=== PATIENT | female | born 1940 | race Caucasian/White ===

== ENCOUNTER → 2016-08-02 | Outpatient (CLI) | payer OTHER | LOC: FIMAGING 10:58 | DX: Z12.31 Encounter for screening mammogram for malignant neoplasm of breast (principal); Z80.3 Family history of malignant neoplasm of breast | CPT/HCPCS: G0202 ==

== ENCOUNTER 2016-08-23 05:57 | Inpatient (IN) | payer OTHER ==
[2016-08-23] MEDS ORDERED: ROPI/epiNEPH/KETOROLAC JOINT COCKTAIL IU ONE (06:00)
[2016-08-23] MEDS ORDERED: CHLORHEXIDINE GLUC HIBICLENS 118 ML BTL TP ONE (06:00)
[2016-08-23] MEDS ORDERED: DEXAMETHASONE 4 MG/ML VIAL IVP ONE (06:00)
[2016-08-23] MEDS ORDERED: CEFAZOLIN 2 GM/DEXTR 100 ML IV ONE (06:00)
[2016-08-23] MEDS ORDERED: ACETAMINOPHEN 325 MG TAB PO ONE (06:00)
[2016-08-23] MEDS ORDERED: TRANEXAMIC ACID 3,000 MG in NS 50 ML IRR ONE (06:00)
[2016-08-23] MEDS ORDERED: FAMOTIDINE 20 MG TAB PO ONE (06:00)
[2016-08-23] MEDS ORDERED: LIDOCAINE 1% 2 ML INJ ONE (06:45)
[2016-08-23] MEDS ORDERED: TRANEXAMIC ACID 3,000 MG/50 ML BAG IRR ONE (06:48)
[2016-08-23] MEDS ORDERED: LR 1,000 ML IV ONE (07:24)
[2016-08-23] MEDS ORDERED: LIDOCAINE 1% 5 ML SDV ID PRN (07:24)
[2016-08-23] MEDS ORDERED: fentaNYL 100 MCG/2 ML INJ ONE (07:25)
[2016-08-23] MEDS ORDERED: MIDAZOLAM 2 MG/2 ML VIAL ONE ×2 (07:26→08:08)
[2016-08-23] MEDS ORDERED: PROPOFOL/EMULSION 500 MG/50 ML BOTTLE IV ONE (07:27)
[2016-08-23] MEDS ORDERED: ONDANSETRON 4 MG/2 ML VIAL ONE (07:36)
[2016-08-23] MEDS ORDERED: BISACODYL 10 MG SUPP PR PRN (08:43)
[2016-08-23] MEDS ORDERED: PHARMACY PAIN CONSULT 1 EA MISC PRN (08:43)
[2016-08-23] MEDS ORDERED: MAGNESIUM HYDROXIDE 30 ML UDCUP PO PRN (08:43)
[2016-08-23] MEDS ORDERED: PROMETHAZINE HCL 25 MG SUPPR PR PRN (08:43)
[2016-08-23] MEDS ORDERED: METOCLOPRAMIDE 10 MG/2 ML VIAL IVP PRN (08:43)
[2016-08-23] MEDS ORDERED: ONDANSETRON 4 MG/2 ML VIAL IVP PRN (08:43)
[2016-08-23] MEDS ORDERED: POLYETHYLENE GLYCOL 3350 17 GM PKT PO PRN (08:43)
[2016-08-23] MEDS ORDERED: LACTULOSE 20 GM/30 ML UDCUP PO PRN (08:43)
[2016-08-23] MEDS ORDERED: TEMAZEPAM 15 MG CAP PO PRN (08:43)
[2016-08-23] MEDS ORDERED: diphenhydrAMINE 25 MG CAP PO PRN (08:43)
[2016-08-23] MEDS ORDERED: CYCLOBENZAPRINE 10 MG TAB PO PRN (08:43)
[2016-08-23] MEDS ORDERED: ONDANSETRON DISINTEGRATING 4 MG TAB PO PRN (08:43)
[2016-08-23] MEDS ORDERED: oxyCODONE IR 5 MG TAB PO PRN (08:43)
[2016-08-23] MEDS ORDERED: DIPHENOXYLATE/ATROPINE LOMOTIL 1 TAB PO PRN (08:43)
[2016-08-23] MEDS ORDERED: LR 1,000 ML IV SCH (09:00)
[2016-08-23] MEDS ORDERED: PHENYLEPHRINE HCL 100 MCG/ML SYR ONE (09:10)
--- NOTE | 2016-08-23 09:34 | POSTOPPROG ---
Post Op Note Date of Operation: 08/23/16 Surgeon: Jimbo Villagomez [facility] Therapist: santy villagomez Anesthesiologist: dr. seymour Anesthesia: Spinal Pre-op Diagnosis: L hip OA Post-op Diagnosis: same Indication: left hip pain due to OA that failed conservative measures Procedure: L AMADOU ant approach Findings: severe hip OA Inf/Abcess present in the surg proc area at time of surgery?: No EBL: 100-500
[2016-08-23] MEDS: ACETAMINOPHEN 325 MG TAB PO SCH ×2 (12:01→18:17)
[2016-08-23] MEDS: SENNOSIDES/DOCUSATE SODIUM TAB PO SCH ×2 (12:23→20:59)
[2016-08-23] MEDS: ceFAZolin 2 GM/DEXTROSE 100 ML IV SCH ×2 (14:03→20:57)
--- NOTE | 2016-08-23 20:47 | GOP ---
[f rep st] OPERATIVE REPORT DATE OF OPERATION: 08/23/2016 SURGEON: Lynn Caballero MD LEGAL CASHIER: STEPHAN Bingham PREOPERATIVE DIAGNOSIS: Left hip osteoarthritis. POSTOPERATIVE DIAGNOSIS: Left hip osteoarthritis. PROCEDURE PERFORMED: Left total hip arthroplasty. FINDINGS: ESTIMATED BLOOD LOSS: 200 cc. INDICATIONS: The patient has progressively worsening arthritis of the hip which has failed medical management. The patient understands the treatment options including continued non-operative care and has selected surgical intervention. The patient has decided to undergo total hip arthroplasty via the direct anterior approach, understanding the risks of the procedure including , but not limited to, neurovascular injury, infection, persistent pain, component wear and loosening, deep venous thrombosis, pulmonary embolism, limb length inequality, hip instability (including dislocation), and intra-operative fractures. DESCRIPTION OF PROCEDURE: After proper identification of the patient including verification and marking the surgical site, the patient was brought to the operating room and placed in the supine position. All bony prominences were well padded. Anesthesia was induced without complication and intravenous prophylactic antibiotics were administered prior to skin incision. The operative leg was placed in the Trumpf Arch table extension and the well leg in a Yellofin leg leal. The patient was prepped and draped in the usual sterile fashion. The C-arm was draped for intra-operative fluoroscopy to check acetabular position, femoral component position including leg length and femoral offset. Attention was then drawn to surgical exposure of the hip. An incision was made with a #10 Bard Valentín blade starting 3 cm lateral and 3 cm distal to the anterior superior iliac spine measuring 8-10 cm and coursing distally toward the greater trochanter. The skin and subcutaneous tissues were divided sharply down to the fascia shantelle. The fascia shantelle was incised in line with the skin incision exposing the underlying tensor fascia shantelle muscle. The muscle was bluntly elevated from the fascia and the first extracapsular Cobra retractor was placed laterally at the junction of the superior femoral neck and greater trochanter. The lateral femoral circumflex vessels were identified, cauterized , and divided with the Aquamantys bipolar cautery. The deep investing fascia of the TFL was divided to allow proper mobilization of the muscle preventing damage during the retraction. The reflected head of the rectus femoris muscle was elevated off the anterior hip capsule and a medial Cobra retractor was placed just proximal to the lesser trochanter. The anterior capsulotomy was made sharply from the superolateral acetabulum to the saddle junction of the superior femoral neck and greater trochanter, then coursing inferomedial towards the lesser trochanter. The retractors were then placed in the intracapsular position for femoral neck osteotomy. Corresponding to pre-operative templating, the osteotomy was made with the oscillating saw carefully protecting the greater trochanter and soft tissues. The femoral head was removed from the acetabulum with a corkscrew and confirmed to be severely arthritic with exposed bone, deformity and osteophytes. Similar findings were confirmed in the acetabulum. The Arch table extension was then placed in 40 degrees external rotation. Attention was then drawn to the acetabular preparation. After placement of the anterior and posterior Cobra retractors outside the labrum and intracapsular, the circumferential labrum was removed sharply. The foveal contents were then removed and hemostasis obtained with cautery. The first reamer selected was sized using the removed femoral head. Reaming began with medialization and then commenced in 2 mm increments at 45 degrees of abduction and 15 degrees of anteversion using fluoroscopic navigation. Reaming ceased 1 mm less than the definitive acetabular component and corresponded to the pre-operative templating. The final acetabular component was inserted using fluoroscopy to achieve proper orientation yielding excellent purchase and stability in the acetabulum. The final acetabular liner was then placed and its seating confirmed. Attention was then turned to the femur. The Arch table extension was placed in extension and adduction, delivering the osteotomized femoral neck into the wound. A 2-pronged femoral elevator was placed at the calcar and another at the tip of the greater trochanter. The posterolateral capsule was released with cautery allowing mobilization of the femur lateral and anterior for preparation. The external rotators were visualized and preserved. A curette and rongeur were used to open the starting point for broaching. Serial broaching started with the #0 broach and ended with the broach that exhibited excellent fit in the proximal femur. A change in pitch during mallet strikes was accompanied by the inability to advance the broach any further. The trial reduction was performed and fluoroscopic navigation was utilized to check limb length. Adjustments were made to equalize limb length accordingly. After the final trials were accepted they were removed and the wound was copiously lavaged. The femoral component was seated to the same depth as the final broach and the femoral head was impacted onto the clean trunnion. The hip was then reduced for the final time and once more fluoroscopy was used to check that limb length equality was achieved. The wound was irrigated and closed in layers, the fascia shantelle with 2-0 Quill, the subcutaneous tissue with 2-0 Quill, and the skin with Dermabond. Sterile dressings were applied. Final sharps and sponge counts were accurate. The patient was then transferred to a hospital bed and brought to the recovery room in stable condition. IMPLANTS: Accolade II, size 3, at 127. Acetabular component is a 52 mm Tritanium. Liner is a Trident X3 32 mm. Head is a Biolex Delta 32 mm +4. /[id number]/MODL MTDD
[2016-08-23] MEDS: ASPIRIN 325 MG TAB PO SCH (20:57)
[2016-08-23] MEDS: FAMOTIDINE 20 MG TAB PO SCH (20:59)
[2016-08-24] MEDS: ACETAMINOPHEN 325 MG TAB PO SCH ×3 (00:07→12:05)
[2016-08-24 05:39] LABS: HEMOGLOBIN 12.8 g/dL (12.6-16.3)
[2016-08-24 05:51] LABS: CALCIUM 8.9 mg/dL (8.5-10.4); CARBON DIOXIDE 22 mEq/l (22-31); CHLORIDE 110 mEq/L (97-110); CREATININE 1.1 mg/dL (0.6-1.0); GLOMERULAR FILTRATION RATE 48; GLUCOSE 87 mg/dL (70-100); SODIUM 140 mEq/L (134-144)
[2016-08-24 05:55] LABS: ANION GAP 8 mEq/L (8-16); POTASSIUM 3.7 mEq/L (3.5-5.2)
[2016-08-24] MEDS: ASPIRIN 325 MG TAB PO SCH (08:49)
[2016-08-24] MEDS: FAMOTIDINE 20 MG TAB PO SCH (08:49)
[2016-08-24] MEDS: SENNOSIDES/DOCUSATE SODIUM TAB PO SCH (08:50)
[2016-08-24] MEDS ORDERED: GEMFIBROZIL 600 MG TAB PO SCH (09:00)
--- NOTE | 2016-08-24 11:27 | SOAPPROG ---
SOAP Progress Note Assessment/Plan: Assessment: Patient is doing well POD 1 s/p L AMADOU Pain management: pain is well controlled on oral pain meds. VTE ppx: recommend aspirin daily for 3 weeks, cont KINDRA and SCDs Anemia: level is expected initially postop. Asymptomatic. Continue to monitor D/c planning: d/c to home today pending release from PT postop urinary retention: straight cath'd yesterday, resolved today Plan: 08/24/16 11:26 Subjective: Marta is doing well today, denies SOB, chest pain and N/V. Objective: Vital Signs Temp Pulse Resp BP Pulse Ox 36.8 C 60 16 102/50 L 93 08/24/16 07:19 08/24/16 07:19 08/24/16 07:19 08/24/16 07:19 08/24/16 08:00 Laboratory Results 08/24/16 05:19 08/24/16 05:19 08/23/16 08/24/16 08/25/16 05:59 05:59 05:59 Intake Total 1965 Output Total 1950 Balance 15 LLE: incision dressing is clean and dry, NVI, +pf/df ICD10 Worksheet Patient Problems: Problems Problem Status Onset Primary localized osteoarthritis of left hip Acute
[2016-08-24 11:57] VITALS: BP 111/70; PULSE 65; RESP 15; TEMP 98.5; O2SAT 91
--- NOTE | 2016-08-25 11:22 | GDS ---
[f rep st] DISCHARGE SUMMARY ADMISSION DIAGNOSIS: Left hip osteoarthritis. DISCHARGE DIAGNOSIS: Left hip osteoarthritis. PROCEDURE: Left total hip arthroplasty. VTE PROPHYLAXIS: Aspirin recommended for 3 weeks daily. BRIEF DESCRIPTION OF HOSPITAL STAY: Patient was admitted for an elective joint arthroplasty. The p atient tolerated the procedure well and has passed physical therapy. The patient was given appropri ate antibiotic prophylaxis and venous thromboembolism prophylaxis. The patient's pain was well cont rolled on oral pain medication, patient was holding down food, and had urinated. Decision was made to discharge the patient. The patient was given post-operative prescriptions pre-operatively. PLAN: Please follow up as scheduled in Dr. Caballero's office. /[id number]/MODL
== END 2016-08-24 13:38 | disposition home or self-care (01) | DRG 470 ==
LOC: F3N 05:57
PROVIDERS: ADMIT Orthopaedic Surgery; ATTEND Orthopaedic Surgery
PROC: 0SRB04Z Replacement of Left Hip Joint with Ceramic on Polyethylene Synthetic Substitute, Open Approach (ICD-10-PCS; principal; 2016-08-23 08:15)
DX: M16.12 Unilateral primary osteoarthritis, left hip (principal)
CPT/HCPCS: 97116-GP; 97161-GP; 97165-GO; G8978-GP-CI; G8979-GP-CI; G8980-GP-CI; G8987-GO-CI; G8988-GO-CI; G8989-GO-CI; J0171; J0690; J1100; J1885; J2250; J2370; J2405; J2704; J2795; J3010

== ENCOUNTER 2018-03-29 07:15 | Inpatient (IN) | payer OTHER, MEDICARE ==
--- NOTE | 2018-03-29 06:12 | PDHPUP ---
History & Physical Update H&P update statement: This history and physical update is based on an assessment of the patient which was completed after admission or registration (within 24 hours), but prior to the surgery/procedure. H&P update: H&P reviewed & patient examined, no change in patient's condition since H&P completed
[~2018-03-29 07:15] MED LIST: ROPIVACAINE 0.2% 80 MG, EPINEPHrine 0.2 MG, KETOROLAC TROMETHAMINE 30 MG in SYRINGE 0 ML IU ONE; TRANEXAMIC ACID 3,000 MG in NS (SYRINGE) 50 ML IRR ONE; TRANEXAMIC ACID 3,000 MG/50 ML BAG IRR ONE
[2018-03-29] MEDS ORDERED: PROPOFOL/EMULSION 500 MG/50 ML BOTTLE IV ONE ×2 (07:58→10:43)
[2018-03-29] MEDS ORDERED: PROPOFOL 200 MG/20 ML VIAL ONE (07:58)
[2018-03-29] MEDS ORDERED: LIDOCAINE 2% 5 ML SDV ONE (07:58)
[2018-03-29] MEDS ORDERED: LIDOCAINE 1% 2 ML INJ ID PRN (08:26)
[2018-03-29] MEDS ORDERED: DEXAMETHASONE 4 MG/ML VIAL IVP ONE (08:26)
[2018-03-29] MEDS ORDERED: ceFAZolin 2 GM/DEXTROSE 100 ML IV ONE (08:26)
[2018-03-29] MEDS ORDERED: LR 1,000 ML IV ONE (08:26)
[2018-03-29] MEDS ORDERED: ACETAMINOPHEN 325 MG TAB PO ONE (08:26)
[2018-03-29] MEDS ORDERED: FAMOTIDINE 20 MG TAB PO ONE (08:26)
[2018-03-29] MEDS ORDERED: BUPIVACAINE/DEXTROSE 7.5MG/ML 2 ML SPINAL AMP SP ONE (08:33)
[2018-03-29] MEDS ORDERED: fentaNYL 100 MCG/2 ML INJ IVP PRN (08:38)
[2018-03-29] MEDS ORDERED: PHENYLEPHRINE HCL 100 MCG/ML SYR IVP PRN (08:38)
[2018-03-29] MEDS ORDERED: LR 500 ML IV PRN (08:38)
[2018-03-29] MEDS ORDERED: NALOXONE HCL 0.4 MG/ML INJ IVP PRN (08:38)
[2018-03-29] MEDS ORDERED: oxyCODONE IR 5 MG TAB PO PRN ×2 (08:38→11:05)
[2018-03-29] MEDS ORDERED: HYDROmorphONE/DILAUDID 2 MG/ML INJ IVP PRN (08:38)
[2018-03-29] MEDS ORDERED: MIDAZOLAM 2 MG/2 ML VIAL IVP ONE (08:38)
[2018-03-29] MEDS ORDERED: METOCLOPRAMIDE 10 MG/2 ML VIAL IVP PRN ×2 (08:38→11:05)
[2018-03-29] MEDS ORDERED: ONDANSETRON 4 MG/2 ML VIAL IVP PRN ×2 (08:38→11:05)
[2018-03-29] MEDS ORDERED: PHENYLEPHRINE HCL 100 MCG/ML SYR ONE (10:32)
[2018-03-29] MEDS ORDERED: POLYETHYLENE GLYCOL 3350 17 GM PKT PO PRN (11:05)
[2018-03-29] MEDS ORDERED: LACTULOSE 20 GM/30 ML UDCUP PO PRN (11:05)
[2018-03-29] MEDS ORDERED: TEMAZEPAM 15 MG CAP PO PRN (11:05)
[2018-03-29] MEDS ORDERED: DIPHENOXYLATE/ATROPINE LOMOTIL 1 TAB PO PRN (11:05)
[2018-03-29] MEDS ORDERED: BISACODYL 10 MG SUPP PR PRN (11:05)
[2018-03-29] MEDS ORDERED: ONDANSETRON DISINTEGRATING 4 MG TAB PO PRN (11:05)
[2018-03-29] MEDS ORDERED: CYCLOBENZAPRINE 10 MG TAB PO PRN (11:05)
[2018-03-29] MEDS ORDERED: MAGNESIUM HYDROXIDE 30 ML UDCUP PO PRN (11:05)
[2018-03-29] MEDS ORDERED: PROMETHAZINE HCL 25 MG SUPPR PR PRN (11:05)
[2018-03-29] MEDS ORDERED: diphenhydrAMINE 25 MG CAP PO PRN (11:05)
[2018-03-29] MEDS ORDERED: PROMETHAZINE HCL 25 MG/ML INJ IVP PRN (11:05)
--- NOTE | 2018-03-29 11:05 | POSTOPPROG ---
Post Op Note Date of Operation: 03/29/18 Surgeon: Jimbo Caballero Warehouse Operations Manager: Kallie Caballero PA-C Anesthesiologist: Dr. Payan Anesthesia: Spinal Pre-op Diagnosis: right hip OA Post-op Diagnosis: same Indication: right hip pain Procedure: right AMADOU Findings: severe hip OA Inf/Abcess present in the surg proc area at time of surgery?: No EBL: 50-100
[2018-03-29] MEDS ORDERED: LR 1,000 ML IV SCH (11:30)
[2018-03-29] MEDS: ACETAMINOPHEN 325 MG TAB PO SCH ×3 (11:56→23:47)
--- NOTE | 2018-03-29 12:31 | PDMN ---
Medical Necessity Medical necessity: [facility] S560 Hip Arthroplasty: 77 yo s/p R AMADOU, [facility] IP only
--- NOTE | 2018-03-29 14:53 | PDANEPAE ---
ANE Past Medical History - Cardiovascular History Hx Hypertension: No Hx Arrhythmias: No Hx Chest Pain: No Hx Coronary Artery / Peripheral Vascular Disease: No Hx CHF / Valvular Disease: No Hx Palpitations: No Cardiovascular History Comment: hypercholesterolemia - Pulmonary History Hx COPD: No Hx Asthma/Reactive Airway Disease: No Hx Recent Upper Respiratory Infection: No Hx Oxygen in Use at Home: No Hx Sleep Apnea: No Sleep Apnea Screening Result - Last Documented: Negative - Neurologic History Hx Cerebrovascular Accident: No Hx Seizures: No Hx Dementia: No - Endocrine History Hx Diabetes: No - Renal History Hx Renal Disorders: No - Liver History Hx Hepatic Disorders: No - Neurological & Psychiatric Hx Hx Neurological and Psychiatric Disorders: No - Cancer History Hx Cancer: Yes Cancer History Comment: skin ca removed - Congenital Disorder History Hx Congenital Disorders: No - GI History Hx Gastrointestinal Disorders: No - Other Health History Other Health History: wears glasses. wears bilateral hearing aides - Chronic Pain History Chronic Pain: Yes (right hip) - Surgical History Prior Surgeries: left teagan with [place] 08/2017. left tka with [employer] . right tka with [facility] 08/02/12. hysterectomy ANE Review of Systems Review of Systems: - Exercise capacity METS (RN): 4 METS ANE Patient History - Allergies Allergies/Adverse Reactions: No Known Allergies Allergy (Verified 03/12/18 11:20) - Home Medications Home Medications: Gemfibrozil [Lopid 600 MG (*)] 600 mg PO BID 07/22/12 [Last Taken 03/28/18] Cholecalciferol Vit D3 [Vitamin D3 (*)] 1,000 units PO DAILY 03/05/18 [Last Taken 03/15/18] Estradiol [Vivelle-Dot 0.05MG (*)] 0.05 mg TD WeSa@0800 03/05/18 [Last Taken 10/24] Herbals/Supplements -Info Only 1 ea PO DAILY 03/05/18 [Last Taken 03/15/18] Multivitamins [Multivitamin (*)] 1 each PO DAILY 03/05/18 [Last Taken 03/15/18] [place]-3 Fatty Acids [Fish Oil 1000 mg (*)] 1,000 mg PO DAILY 03/05/18 [Last Taken 03/15/18] - NPO status NPO Since - Liquids (Date): 03/29/18 NPO Since - Liquids (Time): 06:00 NPO Since - Solids (Date): 03/28/18 NPO Since - Solids (Time): 20:30 - Smoking Hx Smoking Status: Never smoked - Family Anes Hx Family Hx Anesthesia Complications: none ANE Labs/Vital Signs - Vital Signs Blood Pressure: 119/72 Heart Rate: 72 Respiratory Rate: 16 O2 Sat (%): 92 Height: 162.56 cm Weight: 68.039 kg ANE Physical Exam - Airway Neck exam: FROM Mallampati Score: Class 1 Mouth exam: normal dental/mouth exam - Pulmonary Pulmonary: no respiratory distress, no rales or rhonchi, clear to auscultation - Cardiovascular Cardiovascular: regular rate and rhythym, no murmur, rub, or gallop - ASA Status ASA Status: II ANE Anesthesia Plan Anesthesia Plan: spinal
--- NOTE | 2018-03-29 14:53 | POSTANESTH ---
Post Anesthetic Evaluation Cardiovascular Status: Normal, Stable Respiratory Status: Normal, Stable Level of Consciousness/Mental Status: Can Participate in Eval Pain Control: Adequate, Prn Tx Ordered Nausea/Vomiting Control: Adequate, Prn Tx Ordered Complications Possibly Related to Anesthesia: None Noted
[2018-03-29] MEDS: ceFAZolin 2 GM/DEXTROSE 100 ML IV SCH (18:05)
[2018-03-29] MEDS: ASPIRIN 81 MG CHEWABLE TAB PO SCH (20:19)
[2018-03-29] MEDS: FAMOTIDINE 20 MG TAB PO SCH (20:19)
[2018-03-29] MEDS: GEMFIBROZIL 600 MG TAB PO SCH (20:19)
[2018-03-29] MEDS: SENNOSIDES/DOCUSATE SODIUM TAB PO SCH (20:20)
[2018-03-30] MEDS: ceFAZolin 2 GM/DEXTROSE 100 ML IV SCH (02:56)
[2018-03-30] MEDS: ACETAMINOPHEN 325 MG TAB PO SCH ×2 (05:19→13:12)
[2018-03-30 07:11] VITALS: BP 109/58
[2018-03-30] MEDS: FAMOTIDINE 20 MG TAB PO SCH (08:59)
[2018-03-30] MEDS: ASPIRIN 81 MG CHEWABLE TAB PO SCH (08:59)
[2018-03-30] MEDS: GEMFIBROZIL 600 MG TAB PO SCH (08:59)
[2018-03-30] MEDS: SENNOSIDES/DOCUSATE SODIUM TAB PO SCH (08:59)
--- NOTE | 2018-03-30 18:09 | ASMTLACE ---
LACE Length of stay for Answers: 1 day current admission Acuity / Level of Answers: Yes Care: Did the patient have an inpatient admission? Comorbidities - select Answers: Any tumor (including all that apply lymphoma or leukemia) # of Emergency department Answers: 0 visits in the last 6 months Score: 6 Date Signed: 03/30/2018 06:08 PM Electronically Signed By:Charity Soliz RN
--- NOTE | 2018-03-30 18:12 | ASDISCHSUM ---
Discharge Information Plan Status:Home with No Needs Medically Cleared to Leave:03/29/2018 Discharge Date:03/30/2018 01:44 PM CM D/C Disposition:Home, Routine, Self-Care ADT D/C Disposition:Home, Routine, Self-Care Projected Discharge Date:03/30/2018 01:44 PM Transportation at D/C:Family Discharge Delay Reason: Follow-Up Date:03/30/2018 01:44 PM Discharge Slot:2 - 12:01 pm - 18:00 pm Final Diagnosis:Right hip arthroplasty Placement Information Patient Contact Information Contact Name:ERIC Relationship:Daughter Address:[address] Work Phone: [facility]:[place] Alternate Phone: [facility]/Zip Code:[place] [address] Email: Financial Information Financial Class:Medicare Primary Plan Desc:MEDICARE INPATIENT Primary Plan Number:[id number] Secondary Plan Desc:RAD/MDR SUPPLEMENT Secondary Plan Number:[id number] Assessment Information LACE LACE Length of stay for Answers: 1 day current admission Acuity / Level of Answers: Yes Care: Did the patient have an inpatient admission? Comorbidities - select Answers: Any tumor (including all that apply lymphoma or leukemia) # of Emergency department Answers: 0 visits in the last 6 months Score: 6 Date Signed: 03/30/2018 06:08 PM Electronically Signed By:Charity Soliz RN [facility] Progress Note CM Note CM Note Notes: Reviewed chart. Pt admitted for a planned right hip arthroplasty. Pt to discharge home independently with no identified needs. No CHRISTY/GERSON signed, not applicable. Pt to follow up as directed. CM available for any further issues or concerns. Discharge Plan: Home independently Date Signed: 03/30/2018 06:11 PM Electronically Signed By:Cahrity Soliz RN Intervention Information
--- NOTE | 2018-03-30 18:12 | ASMTCMCOM ---
CM Note CM Note Notes: Reviewed chart. Pt admitted for a planned right hip arthroplasty. Pt to discharge home independently with no identified needs. No IM/NIETO signed, not applicable. Pt to follow up as directed. CM available for any further issues or concerns. Discharge Plan: Home independently Date Signed: 03/30/2018 06:11 PM Electronically Signed By:Charity Soliz RN
--- NOTE | 2018-03-30 21:25 | SOAPPROG ---
SOLUPE Progress Note Assessment/Plan: Assessment: Marta is doing well POD 1 s/p R AMADOU pain is well controlled on oral pain meds VTE ppx: recommend aspirin 81 mg BID for 4 weeks Anemia: mild, expected postop D/c planning: patient has done much better than anticipated. Patient may discharge to home once released from PT. She has recovered from a previous L AMADOU several years ago without issue. patient is eager for discharge to home Plan: 03/30/18 21:22 Subjective: Jerry is doing well today, denies SOB, chest pain and N/V, eager for discharge to home Objective: Vital Signs Temp Pulse Resp BP Pulse Ox 36.8 C 64 16 109/58 L 93 03/30/18 07:10 03/30/18 07:10 03/30/18 07:10 03/30/18 07:10 03/30/18 07:10 Laboratory Results 03/30/18 05:12 03/30/18 05:12 03/29/18 03/30/18 03/31/18 05:59 05:59 05:59 Intake Total 1815 Output Total 2175 500 Balance -360 -500 RLE:Incision dressing is clean and dry, NVI, +pf/df ICD10 Worksheet Patient Problems: Problems Problem Status Onset Primary localized osteoarthritis of left hip Acute
--- NOTE | 2018-04-01 02:35 | GOP ---
DATE OF OPERATION: 03/29/2018 SURGEON: Lynn Caballero MD STEMHOLE BORER: CURTIS Gonzalez. ANESTHESIA: Spinal. PREOPERATIVE DIAGNOSIS: Right hip osteoarthritis. POSTOPERATIVE DIAGNOSIS: Right hip osteoarthritis. PROCEDURE PERFORMED: Right total hip arthroplasty with x-ray. FINDINGS: INDICATIONS: The patient has progressively worsening arthritis of the hip which has failed medical m anagement. The patient understands the treatment options including continued non-operative care and has selected surgical intervention. The patient has decided to undergo total hip arthroplasty via th e direct anterior approach, understanding the risks of the procedure including, but not limited to, n eurovascular injury, infection, persistent pain, component wear and loosening, deep venous thrombosis , pulmonary embolism, limb length inequality, hip instability (including dislocation), and intra-oper ative fractures. DESCRIPTION OF PROCEDURE: After proper identification of the patient including verification and mariano ing the surgical site, the patient was brought to the operating room and placed in the supine positio n. All bony prominences were well padded. Anesthesia was induced without complication and intraveno us prophylactic antibiotics were administered prior to skin incision. The operative leg was placed in the Trumpf Arch table extension and the well leg in a Yellofin leg ho lder. The patient was prepped and draped in the usual sterile fashion. The C-arm was draped for int ra-operative fluoroscopy to check acetabular position, femoral component position including leg lengt h and femoral offset. Attention was then drawn to surgical exposure of the hip. An incision was made with a #10 Bard [place] r blade starting 3 cm lateral and 3 cm distal to the anterior superior iliac spine measuring 8-10 cm and coursing distally toward the greater trochanter. The skin and subcutaneous tissues were divided sharply down to the fascia shantelle. The fascia shantelle was incised in line with the skin incision exposing the underlying tensor fascia shantelle muscle. The muscle was bluntly elevated from the fascia and the f irst extracapsular Cobra retractor was placed laterally at the junction of the superior femoral neck and greater trochanter. The lateral femoral circumflex vessels were identified, cauterized, and divi ded with the Aquamantys bipolar cautery. The deep investing fascia of the TFL was divided to allow p fredy mobilization of the muscle preventing damage during the retraction. The reflected head of the rectus femoris muscle was elevated off the anterior hip capsule and a medial Cobra retractor was plac ed just proximal to the lesser trochanter. The anterior capsulotomy was made sharply from the superolateral acetabulum to the saddle junction of the superior femoral neck and greater trochanter, then coursing inferomedial towards the lesser troc hanter. The retractors were then placed in the intracapsular position for femoral neck osteotomy. C orresponding to pre-operative templating, the osteotomy was made with the oscillating saw carefully p rotecting the greater trochanter and soft tissues. The femoral head was removed from the acetabulum with a corkscrew and confirmed to be severely arthritic with exposed bone, deformity and osteophytes. Similar findings were confirmed in the acetabulum. The Arch table extension was then placed in 40 degrees external rotation. Attention was then drawn to the acetabular preparation. After placement of the anterior and posterio r Cobra retractors outside the labrum and intracapsular, the circumferential labrum was removed sharp ly. The foveal contents were then removed and hemostasis obtained with cautery. The first reamer selected was sized using the removed femoral head. Reaming began with medialization and then commenced in 2 mm increments at 45 degrees of abduction and 15 degrees of anteversion using fluoroscopic navigation. Reaming ceased 1 mm less than the definitive acetabular component and suzi esponded to the pre-operative templating. The final acetabular component was inserted using fluorosc opy to achieve proper orientation yielding excellent purchase and stability in the acetabulum. The f inal acetabular liner was then placed and its seating confirmed. Attention was then turned to the femur. The Arch table extension was placed in extension and adducti on, delivering the osteotomized femoral neck into the wound. A 2-pronged femoral elevator was placed at the calcar and another at the tip of the greater trochanter. The posterolateral capsule was rele ased with cautery allowing mobilization of the femur lateral and anterior for preparation. The exter nal rotators were visualized and preserved. A curette and rongeur were used to open the starting poi nt for broaching. Serial broaching started with the #0 broach and ended with the broach that exhibit ed excellent fit in the proximal femur. A change in pitch during mallet strikes was accompanied by t he inability to advance the broach any further. The trial reduction was performed and fluoroscopic n avigation was utilized to check limb length. Adjustments were made to equalize limb length according ly. After the final trials were accepted they were removed and the wound was copiously lavaged. The femo ral component was seated to the same depth as the final broach and the femoral head was impacted onto the clean trunnion. The hip was then reduced for the final time and once more fluoroscopy was used to check that limb length equality was achieved. The wound was irrigated and closed in layers, the fascia shantelle with 2-0 Quill, the subcutaneous tissue with 2-0 Quill, and the skin with Dermabond. Sterile dressings were applied. Final sharps and spon ge counts were accurate. The patient was then transferred to a hospital bed and brought to the [facility] room in stable condition. IMPLANTS: Accolade II size 4, 127 acetabular component, Trident II 52 mm, liner is a Trident X3 36 m m, head is a Biolox Delta 36 mm -4. /[id number]/MODL
--- NOTE | 2018-04-04 16:18 | GDS ---
ADMISSION DIAGNOSIS: Right hip osteoarthritis. DISCHARGE DIAGNOSIS: Right hip osteoarthritis. PROCEDURE: Right total hip arthroplasty. VTE PROPHYLAXIS: Recommend aspirin 81 mg twice daily for 4 weeks. BRIEF DESCRIPTION OF HOSPITAL STAY: Patient was admitted for an elective joint arthroplasty. The franklyn guy tolerated the procedure well and has passed physical therapy. The patient was given appropriat e antibiotic prophylaxis and venous thromboembolism prophylaxis. The patient's pain was well control led on oral pain medication, patient was holding down food, and had urinated. Decision was made to d ischarge the patient. The patient was given post-operative prescriptions pre-operatively. PLAN: Follow up as scheduled in Dr. Caballero's office in 3 weeks. Patient is safe to discharge to home earlier than anticipated as patient has done very well and has already previously recovered from a left total hip and has a great understanding of recovery process. /[id number]/MODL
== END 2018-03-30 13:44 | disposition home or self-care (01) | DRG 470 ==
LOC: F3N 08:01
PROVIDERS: ADMIT Orthopaedic Surgery; ATTEND Orthopaedic Surgery
PROC: 0SR904Z Replacement of Right Hip Joint with Ceramic on Polyethylene Synthetic Substitute, Open Approach (ICD-10-PCS; principal; 2018-03-29 10:00)
DX: M16.11 Unilateral primary osteoarthritis, right hip (principal); D64.9 Anemia, unspecified; Z96.653 Presence of artificial knee joint, bilateral; Z96.642 Presence of left artificial hip joint
CPT/HCPCS: 97110-GP; 97116-GP; 97161-GP; G8978-GP-CJ; G8978-GP-CK; G8979-GP-CJ; G8980-GP-CJ; J0171; J0690; J1100; J1885; J2250; J2370; J2704; J2795

== ENCOUNTER → 2018-07-26 | Outpatient (CLI) | payer OTHER, MEDICARE | LOC: FIMAGING 11:04 | PROVIDERS: ATTEND Internal Medicine | DX: Z13.820 Encounter for screening for osteoporosis (principal); M85.89 Other specified disorders of bone density and structure, multiple sites ==